=== PATIENT | male | born 1960 | race Caucasian/White ===

== ENCOUNTER → 2020-03-06 10:11 | Outpatient (BNVA) | payer SELFPAY | PROVIDERS: Family Provider Nurse Practitioner Family; PCP Nurse Practitioner Family; Visit Provider Nurse Practitioner Family | DX: M25.572 Pain in left ankle and joints of left foot (principal); R21 Rash and other nonspecific skin eruption; J04.0 Acute laryngitis | CPT/HCPCS: 73610 ==

== ENCOUNTER 2020-12-31 13:52 | Outpatient (CLI) | payer OTHER, SELFPAY ==
--- NOTE | 2020-12-31 14:01 | XRR_ITS ---
PROCEDURE INFORMATION: Exam: XR Lumbosacral Spine Exam date and time: 12/31/2020 2:01 PM Age: 60 years old Clinical indication: Low back pain; Additional info: M54.9 - dorsalgia, unspecified TECHNIQUE: Imaging protocol: XR of the lumbosacral spine. Views: 6 or more views. Including flexion and extension views. COMPARISON: No relevant prior studies available. FINDINGS: Bones/joints: Normal. No acute fracture. Normal alignment. No subluxation between flexion and extension views. Disc spaces preserved. Soft tissues: No acute findings. Incidental arterial calcifications. XR/XR lumbar spine 6V w f/e [id number] IMPRESSION: No acute findings. Radiation Dose CTDIVOL = (mGy): DLP = (mGy-cm)
== END 2020-12-31 13:53 | disposition home or self-care (01) ==
PROVIDERS: PCP Emergency Medicine; Visit Provider Emergency Medicine
DX: M54.50 Low back pain, unspecified (principal)
CPT/HCPCS: 72114; 81000